=== PATIENT | female | born 1995 | race Caucasian/White ===

== ENCOUNTER 2024-01-19 18:26 | Emergency (ER) | payer MEDICAID ==
[~2024-01-19] VITALS: Ht 170.2 cm; Wt 98.6 kg
[2024-01-19 19:15] LABS: BILIRUBIN,URINE NEGATIVE (Neg); CLARITY,URINE CLOUDY (Clear); COLOR,URINE YELLOW (Yellow); GLUCOSE, URINE NEGATIVE (Neg); KETONES,URINE TRACE mg/dl (Neg); LEUKOCYTE ESTERASE ,URINE NEGATIVE (Neg); NITRITES, URINE NEGATIVE (Neg); OCCULT BLOOD,URINE LARGE (Neg); PH,URINE 6.5 (4.8-8.0); PROTEIN,URINE 30 mg/dl (Neg); UROBILINOGEN,URINE 0.2 E.U/dL (0.2-1.0)
[2024-01-19 19:16] LABS: UA COLLECTION TYPE CLN CATCH MIDSTREAM
[2024-01-19 19:26] LABS: MUCUS STRANDS MANY /LPF (Neg); RBC,URINE TNTC /HPF (0-2); SQUAMOUS EPITHELIAL CELL,UR MANY /LPF (FEW); TRANSITIONAL EPI CELLS,URINE FEW /HPF; WBC,URINE 0-4 /HPF (0-4)
[2024-01-19 19:27] LABS: BACTERIA,URINE 2+ /HPF (Neg)
[2024-01-19 19:43] LABS: URINE HCG NEGATIVE (NEG)
[2024-01-19 20:40] VITALS: BP 130/85; PULSE 82; TEMP 97.9; O2SAT 96
[2024-01-19 21:05] LABS: BASOPHILS # (AUTO) 0.1 X10'3 (0-0.2); BASOPHILS % (AUTO) 0.5 % (0-1); EOSINOPHILS # (AUTO) 0.1 X10'3 (0-0.9); EOSINOPHILS % (AUTO) 0.8 % (0-6); HEMATOCRIT 40.8 % (35.0-45.0); HEMOGLOBIN 13.7 g/dl (12.0-16.0); LYMPHOCYTES # (AUTO) 1.8 X10'3 (1.1-4.8); LYMPHOCYTES % (AUTO) 11.9 % (21-51); MEAN CORPUSCULAR HEMOGLOBIN 29.5 PG (27.0-31.0); MEAN CORPUSCULAR HGB CONC 33.6 g/dL (33.0-36.5); MEAN CORPUSCULAR VOLUME 87.6 FL (78-98); MEAN PLATELET VOLUME 8.2 FL (7.4-10.4); MONOCYTES # (AUTO) 0.7 X10'3 (0-0.9); MONOCYTES % (AUTO) 4.4 % (2-12); NEUTROPHILS # (AUTO) 12.8 X10'3 (1.8-7.7); NEUTROPHILS % (AUTO) 82.4 % (42-75); PLATELET COUNT 388 X10'3 (140-440); RED BLOOD COUNT 4.66 X10'6 (4.20-5.60); RED CELL DISTRIBUTION WIDTH 13.7 % (11.5-14.5); WHITE BLOOD COUNT 15.5 X10'3 (4.5-11.0)
[2024-01-19 21:12] LABS: ALBUMIN 3.8 G/DL (3.4-5.0); ANION GAP 7 (8-16); BLOOD UREA NITROGEN 13 MG/DL (7-18); BUN/CREATININE RATIO 12.5 (10.0-20.0); CHLORIDE 107 MMOL/L (99-107); CREATININE 1.04 MG/DL (0.40-0.90); GLUCOSE 119 MG/DL (70-104); LIPASE 40 U/L (16-77); POTASSIUM 4.1 MMOL/L (3.5-5.1); SODIUM 141 MMOL/L (135-145); TOTAL CARBON DIOXIDE 27.1 MMOL/L (24-32); eCRCL 77 ML/MIN; eGFR 62 ML/MIN
[2024-01-19] MEDS ORDERED: HYDR-3973 PO (21:46)
[2024-01-19] MEDS ORDERED: ONDA4TAB12 PO (21:46)
[2024-01-19] MEDS: ketorolac trometh inj. 60 MG/2 ML VIAL IM ONE (22:00)
[2024-01-19 22:02] VITALS: RESP 17
[2024-01-19] MEDS: ondansetron 4mg rapidly disintigrating tab PO ONE (22:02)
[2024-01-19] MEDS: HYDROcodone/acetaminophen 5mg/325mg tablet PO ONE (22:02)
== END 2024-01-19 22:06 | disposition home or self-care (01) ==
LOC: ER 18:26
DX: N20.0 Calculus of kidney (principal)
CPT/HCPCS: 74176; 80048; 81001; 81025; 83690; 84484; 85025; 96372; 99285; J1885

== ENCOUNTER 2025-04-06 17:15 | Emergency (ER) | payer MEDICAID ==
[~2025-04-06] VITALS: Ht 170.2 cm; Wt 97.1 kg
[~2025-04-06 17:15] MED LIST: ONDA-243 PO
[2025-04-06 17:17] VITALS: BP 129/92; PULSE 90; RESP 16; TEMP 97; O2SAT 97
--- NOTE | 2025-04-06 19:30 | Physician Documentation ---
History of Present Illness ~ Chief Complaint: Mechanical Fall Stated Complaint: FALL Time Seen by MD: 18:35 HPI Patient is seen today with complaints of pain of her left ankle after she missed a step coming down off a curb and rolled her left ankle came down on her hands and knees. Patient denies any significant or severe pain of her hands or knees but states he has pain of her left ankle. Patient denies any numbness or tingling and has no other concern or complaint at this time. Denies any head strike or loss of consciousness. Medication Reconciliation Allergies: Coded Allergies: No Known Allergies (Unverified , 04/06/25) Scheduled PRN ONDANSETRON ODT 4mg tablet (Ondansetron Odt), 1 TAB PO Q6H PRN PRN for nausea/vomiting Review of Systems Constitutional: Denies: chills, fever, weakness Eyes: Denies: pain, blurred vision ENT: Denies: ear pain, nose pain, throat pain, mouth pain Respiratory: Denies: cough, shortness of breath Cardiovascular: Denies: chest pain, palpitations Gastrointestinal: Denies: abdominal pain, nausea, vomiting Genitourinary: Denies: burning, dysuria Female Genitalia: Denies: vaginal discharge, pelvic pain Neurological: Denies: headache, dizziness Musculoskeletal: Denies: pain, swelling Integumentary: Denies: rash, lesions Allergic/Immunologic: Denies: hives, itching Hematologic/Lymphatic: Denies: no symptoms reported Psychiatric: Denies: depression, anxiety Physical Exam Vital Signs: Temperature: 97.0, Source: Temporal, Heart Rate: 90, Respiratory Rate: 16, BP: 129/92, Pulse Oximetry: 97, Weight: 97.100 Oxygen Flow Rate: 0 Physical Exam General: Awake and Alert, no acute distress. HEENT: Conjunctiva pink, Sclera clear, Mucus Membranes moist. Neck: Supple without masses and tenderness. Resp: Unlabored. Lungs clear to auscultation bilaterally. Heart: Regular Rate and rhythm, normal S1 and S2 without murmur, rub or gallop. Musculoskeletal: Patient on exam does have no significant swelling or ecchymosis of the left ankle and very minimal point tenderness just distal to the lateral malleoli. Patient has no significant tenderness of the lateral malleoli. Range of motion is near full. In his neurovascularly intact distally. Motor function intact distally. Extremities: No cyanosis,clubbing or edema. Skin: Warm and Dry. Progress Results/Orders Results/Orders Vital Signs 04/06/25 17:17 Temp 97.0 Pulse 90 Resp 16 B/P (MAP) 129/92 Pulse Ox 97 O2 Flow Rate 0 EKG/XRAY/CT/US/VASC/MRI Bone/Soft Tissue X-Ray (Ext.) : Additional Comment X-ray of left ankle interpreted by myself today shows no sign of acute fracture, bones in anatomic alignment, no osteolytic or blastic lesions. DIAGNOSTIC RADIOLOGY Patient: CINDY FUCHS Medical Record: [id number] [facility] : 1995, Age: 29 Sex: Female Location: ER Patient Status: [facility] ER Service Date/Time: 04/06/251730 Ordering Physician: NOMAN CALDERON MD Exam: ANKLE, COMPLETE(3VW MIN) CLINICAL INDICATION: ANKLE PAIN RIGHT TECHNIQUE: 3 radiographic views of the left ankle were obtained. Comparison: None FINDINGS/IMPRESSION: There is no evidence of acute fracture or dislocation. The visualized joint space is well maintained. The alignment is anatomical. There is no radiopaque foreign body. Electronically Signed by:CAMI MCINTYRE DO Date & Time: 04/06/252136 Dictated by: CAMI MCINTYRE DO Dictation date and time: 04/06/252136 Primary Care Provider: NO PRIMARY CARE PROVIDER cc: NOMAN CALDERON MD ~ Medical Decision Making Findings Patient is seen today with complaints of pain of her left ankle after she missed a step coming down off a curb and rolled her left ankle came down on her hands and knees. Patient denies any significant or severe pain of her hands or knees but states he has pain of her left ankle. Patient denies any numbness or tingling and has no other concern or complaint at this time. Denies any head strike or loss of consciousness. Patient did have x-ray of left ankle that showed no sign of acute fracture. Patient will advance activity level as tolerated. She will rest, ice, compress, elevate for 48-72 hours 20 minutes on and 20 minutes off. Follow up with primary care in 3-5 days if no better as needed sooner. Return to ED with any worsening, concerning or changing symptoms. Departure Disposition: 01 HOME / SELF CARE / HOMELESS Impression: Primary Impression: Ankle sprain Qualified Codes: S93.402A - Sprain of unspecified ligament of left ankle, initial encounter Condition: Improved Discharge Instructions: Ankle Sprain, [id number] Additional Instructions: Patient did have x-ray of left ankle that showed no sign of acute fracture. Patient will advance activity level as tolerated. She will rest, ice, compress, elevate for 48-72 hours 20 minutes on and 20 minutes off. Follow up with primary care in 3-5 days if no better as needed sooner. Return to ED with any worsening, concerning or changing symptoms. Referrals: NO PRIMARY CARE PROVIDER (PCP) Signature Scribe Signature: No scribe Attestation: No scribe MARIA DE JESUS HERNANDEZ PAC Apr 06, 2025 19:30
--- NOTE | 2025-04-06 21:39 | RADIOLOGY REPORT ---
CLINICAL INDICATION: ANKLE PAIN RIGHT TECHNIQUE: 3 radiographic views of the left ankle were obtained. Comparison: None FINDINGS/IMPRESSION: There is no evidence of acute fracture or dislocation. The visualized joint space is well maintained. The alignment is anatomical. There is no radiopaque foreign body.
== END 2025-04-06 19:57 | disposition home or self-care (01) ==
LOC: ER 17:15
DX: S93.492A Sprain of other ligament of left ankle, initial encounter (principal); X50.1XXA Overexertion from prolonged static or awkward postures, initial encounter; Y93.89 Activity, other specified; Y92.89 Other specified places as the place of occurrence of the external cause; Y99.8 Other external cause status
CPT/HCPCS: 73610; 99284